=== PATIENT | male | born 1990 | race Hispanic/Latino ===

== ENCOUNTER 2019-02-02 07:36 | Outpatient (CLI) | payer BC ==
--- NOTE | 2019-02-02 08:09 | ULT ---
ULTRASOUND ABDOMEN LIMITED: (RIGHT UPPER QUADRANT) DATE: 02/02/2019 HISTORY: 28-year-old male with elevated liver function tests. FINDINGS: Suboptimal visualization of intra-abdominal contents due to body habitus. Gallbladder: Distended. Normal wall thickness. No evidence of pericholecystic fluid or gallstones. Liver: Diffusely increased echogenicity, consistent with fatty liver. Common duct caliber:2 mm. Right kidney: No hydronephrosis. Pancreas: Incompletely visualized.. IMPRESSION: 1) Hepatic steatosis. 2) no other definite pathology identified. 3) pancreas poorly visualized.
== END 2019-02-02 07:37 | disposition home or self-care (01) ==
LOC: ULT 07:36
PROVIDERS: ATTEND Family Medicine
DX: R79.89 Other specified abnormal findings of blood chemistry (principal); K76.0 Fatty (change of) liver, not elsewhere classified
CPT/HCPCS: 76705

== ENCOUNTER 2019-03-17 15:07 | Emergency (ER) | payer BC ==
--- NOTE | 2019-03-17 15:45 | RAD ---
LEFT KNEE 4 VIEWS: Date: 03/17/19 HISTORY: Injury. COMPARISON: None. FINDINGS: Mild lateral soft tissue swelling. No acute displaced fracture or malalignment. No significant joint effusion. IMPRESSION: No acute osseous abnormality. POS: CET
[2019-03-17] MEDS ORDERED: HYDROcodone/Acetaminophen 10/325 mg Tablet ONE (15:58)
== END 2019-03-17 16:30 | disposition home or self-care (01) ==
LOC: ERS 15:07
DX: M25.562 Pain in left knee (principal); E11.9 Type 2 diabetes mellitus without complications; F41.9 Anxiety disorder, unspecified; Z79.899 Other long term (current) drug therapy

== ENCOUNTER 2023-02-18 13:20 | Outpatient (CLI) | payer BC | END 2023-02-18 13:21 | disposition home or self-care (01) | LOC: MRI 13:20 | PROVIDERS: ATTEND Psychiatry & Neurology Neurology | DX: G20 Parkinson's disease (principal) | CPT/HCPCS: 70553 ==

== ENCOUNTER 2023-02-18 14:32 | Outpatient (CLI) | payer BC | END 2023-02-18 14:33 | disposition home or self-care (01) | LOC: EEG 14:32 | PROVIDERS: ATTEND Psychiatry & Neurology Neurology | DX: G20 Parkinson's disease (principal) | CPT/HCPCS: 95816; 95957 ==

== ENCOUNTER 2023-03-25 08:26 | Outpatient (CLI) | payer BC | END 2023-03-25 08:27 | disposition home or self-care (01) | LOC: NM 08:26 | PROVIDERS: ATTEND Psychiatry & Neurology Neurology | DX: G20.C Parkinsonism, unspecified (principal) | CPT/HCPCS: 78803; A9584 ==